=== PATIENT | female | born 1965 | race African-American/Black ===

== ENCOUNTER 2019-02-02 10:35 | Emergency (ER) | payer BC ==
[~2019-02-02] VITALS: Ht 152.4 cm; Wt 135.2 kg
[~2019-02-02 10:35] MED LIST: IBUPROFEN600 MG ORAL; NORCO 5-325 TA1 EACH ORAL; VALIUM5 MG ORAL
[2019-02-02] MEDS ORDERED: TRAMADOL HCL100 M2 ORAL (10:51)
[2019-02-02] MEDS ORDERED: AMLODIPINE BESY10 MG ORAL (10:51)
[2019-02-02 11:00] VITALS: BP 176/91
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
[2019-02-02 12:10] VITALS: BP 134/68
--- NOTE | 2019-02-02 12:10 | NUR ---
ED Nurse Note: pt is stable and will be d/c home with f/u instructions to see her PCP with any conerns or questions. pt is able to ambulate and is accompanied family. pt was educated on presribed medications and understands to return to ED if her symptoms worsen or for any other concerns.
[2019-02-02] MEDS ORDERED: IBUPROFEN600 MG ORAL (12:27)
== END 2019-02-02 12:32 | disposition home or self-care (01) ==
LOC: EMR 12:10
DX: S29.012A Strain of muscle and tendon of back wall of thorax, initial encounter (principal); M54.5 Low back pain; S80.00XA Contusion of unspecified knee, initial encounter; I10 Essential (primary) hypertension; G89.29 Other chronic pain; M19.90 Unspecified osteoarthritis, unspecified site; M25.569 Pain in unspecified knee; V43.52XA Car driver injured in collision with other type car in traffic accident, initial encounter; Y92.410 Unspecified street and highway as the place of occurrence of the external cause
CPT/HCPCS: 99282